=== PATIENT | male | born 2000 | race Caucasian/White ===

== ENCOUNTER 2019-10-16 17:39 | Emergency (ER) | payer OTHER ==
[~2019-10-16] VITALS: Ht 177.8 cm; Wt 72.7 kg
[~2019-10-16 17:39] MED LIST: VYVANSE30 MG PO
[2019-10-16 17:47] VITALS: BP 143/76; TEMP 98.6
[2019-10-16 18:36] VITALS: PULSE 85
== END 2019-10-16 18:37 | disposition home or self-care (01) ==
LOC: COL.ER 17:39
DX: S06.0X0A Concussion without loss of consciousness, initial encounter (principal); W19.XXXA Unspecified fall, initial encounter; W22.8XXA Striking against or struck by other objects, initial encounter